=== PATIENT | female | born 1945 | race Caucasian/White ===

== ENCOUNTER → 2016-09-16 | Outpatient (REF) | payer MEDICARE ==
[~2016-09-16] MED LIST: AMLO5TAB2 PO; DOCU10CA PO; DRIS50002 PO; INSUH10VL SC; LANTINJ4 SC; LASI20TA PO; PRAV1TAB39 PO; PROZ20CA11 PO; RENV2TAB PO; ROCA0.5C PO; TUMS500C PO
== END ==
LOC: M LAB REF 17:14
PROVIDERS: ATTEND Internal Medicine Nephrology
DX: D64.9 Anemia, unspecified (principal); N18.9 Chronic kidney disease, unspecified

== ENCOUNTER → 2016-09-26 | Outpatient (CLI) | payer MEDICARE ==
--- NOTE | 2016-09-27 08:18 | REP ---
Renal vascular ultrasound and renal ultrasound: Renal vascular ultrasound: Right Kidney: Extraparenchymal renal artery. Peak renal artery flow velocity 132 cm per seconds Peak aortic velocity: 107 cm/sec Renal/aortic ratio: 1.2 Intraparenchymal renal arteries. Resistive index: upper pole 0.8 mid pole 0.8 lower pole 0.9 Acceleration time: upper pole 0.03 mid pole 0.2 lower pole 0.03 Left kidney: Extraparenchymal renal artery: Peak renal artery flow velocity: 120 cm/sec. Peak aortic velocity: 107 cm/sec Renal/aortic ratio: 1.1 Intraparenchymal renal arteries: Resistive index: Upper pole 0.8 mid pole 0.8 lower pole 0.8 Acceleration time: Upper pole 0.04 mid pole 0.02 lower pole 0.03 Impression: No evidence of renal artery stenosis by Doppler ultrasound. Renal ultrasound: The right kidney is atrophic size measuring 8.7 x 3.5 x 3.3 cm. Left kidney is normal size measuring 10.0 x 4.1 x 4.9 cm. Renal cortical echogenicity is normal bilaterally. There is no hydronephrosis on the right. There is mild hydronephrosis on the left. There is no hydroureter on the right or the left. No calculi, masses or cysts are identified on the right or left. Bladder ultrasound: With color Doppler assessment there are bilateral ureteral jets. No bladder wall polyps or nodules are identified. Impression: Right kidney is atrophic size. Mild left hydronephrosis. Signed by Javier Hopper MD 09/27/2016 08:09 A
== END ==
LOC: M RAD 07:58
PROVIDERS: ATTEND Internal Medicine Nephrology
DX: N28.9 Disorder of kidney and ureter, unspecified (principal); N13.30 Unspecified hydronephrosis; N18.3 Chronic kidney disease, stage 3 (moderate); I10 Essential (primary) hypertension; E10.22 Type 1 diabetes mellitus with diabetic chronic kidney disease

== ENCOUNTER 2016-10-07 17:03 | Emergency (ER) | payer MEDICARE ==
[2016-10-07] MEDS ORDERED: BENZONATATE 100 MG CAP As Ordered ONE (18:40)
[2016-10-07] MEDS ORDERED: ACETAMINOPHEN 325 MG TAB As Ordered ONE (18:41)
--- NOTE | 2016-10-07 19:53 | EDDOCDS ---
Physician Documentation [facility] Name: Serena Mccrary Age: 71 yrs Sex: Female : 1945 Arrival Date: 10/07/2016 Time: 17:03 Bed TR8 Private MD: Etta Solorzano Disposition: 10/07/16 18:43 Discharged to Home/Self Care. Impression: Acute upper respiratory infection, unspecified, Cough. - Condition is Stable. - Discharge Instructions: Upper Respiratory Infection, Adult, Cough, Adult. - Prescriptions for benzonatate 200 mg Oral Capsule - take 1 capsule by ORAL route 3 times per day As needed; 30 capsule. - Medication Reconciliation, Local Pharmacy Hours form. - Follow up: Etta Solorzano; When: Call to arrange an appointment; Reason: Recheck today's complaints, Continuance of care. - Problem is new. - Symptoms are unchanged. Historical: - Allergies: PENICILLINS; Keflex; Erythromycin; Tetracyclines; Codeine Sulfate; Aspirin; Hydrochlorothiazide; - Home Meds: 1. Renvela 800 mg oral tab 1 tab daily 2. amlodipine 10 mg Oral tab 1 tab once daily 3. losartan 25 mg oral tab 1 tab once daily 4. fluoxetine 10 mg Oral cap 2 caps daily 5. omeprazole 20 mg Oral cpDR 1 cap once daily 6. calcitriol 0.5 mcg oral cap 2 caps once daily 7. pravastatin 20 mg oral tab 1 tab once daily 8. furosemide 10 mg/mL Oral soln 1 mL once daily 9. Zyrtec 10 mg Oral tab 1 tab once daily - PMHx: Depression; Hypertension; hyperglycemia; Diabetes - NIDDM: controlled; chronic kidney disease stage 3; - PSHx: Hysterectomy; cyst removal; Cholecystectomy; - Social history: Smoking status: Patient states was never smoker of tobacco. No barriers to communication noted, The patient speaks fluent Arabic, Speaks appropriately for age. - : The pt / caregiver states he / she is not on anticoagulants. Home medication list is obtained from the patient. - Exposure Risk Screening:: None identified. Vital Signs: 10/07 17:06 BP 145 / 66 RA Sitting (auto/reg); Pulse 86; Resp 16; Temp 98.8(O); Pulse Ox 98% on jrd R/A; Weight 48.53 kg / 106.99 lbs (R); Height 5 ft. 0 in. (152.40 cm) (R); Pain 0/10; 17:06 Body Mass Index 20.90 (48.53 kg, 152.40 cm) jrd MDM: 18:39 Tessalon 200 mg PO once ordered. mo1 18:40 Acetaminophen Tablet 650 mg PO once ordered. mo1 Administered Medications: 18:43 Drug: Tessalon 200 mg Route: PO; ml6 18:43 Drug: Acetaminophen 650 mg [acetaminophen 325 mg tablet (2 tabs)] Route: PO; ml6 Signatures: Rusty Yap PA PA mo1 Navin Jenkins,RN RN Babar Neil RN ml6 MTDD
--- NOTE | 2016-10-07 19:53 | EDDOCDS ---
Nurse's Notes [facility] Name: Serena Mccrary Age: 71 yrs Sex: Female : 1945 Arrival Date: 10/07/2016 Time: 17:03 Bed TR8 Private MD: Etta Solorzano Diagnosis: Acute upper respiratory infection, unspecified;Cough Presentation: 10/07 17:10 Presenting complaint: Patient states: Patient reports having issue for two weeks with [facility] new medication amlodipine. Patient reports blood pressure was high, increased from 5-10mg. Patient reports respiratory issue. Presenting complaint: Patient states: Patient reports cold, cough, sore throat, and loss of voiced. The last date and time the patient was known to be well was. The last date and time the patient was known to be well was was at an unknown time on an unknown date. No acute neurological deficit is noted. Pre-hospital glucose is not applicable to this patient. Adult Sepsis Screening: The patient does not have new or worsening altered mentation. Patient's respiratory rate is less than 22. Systolic blood pressure is greater than 100. Patient has a qSOFA score of 0- Negative Sepsis Screen. Suicide/Homicide risk assessment- the patient denies having any suicidal and/or homicidal ideations and does not present with any other emotional, behavioral or mental health complaints. Status: Patient is not a marketing services manager or dependent. Transition of care: patient was not received from another setting of care. 17:10 Acuity: SEMAJ Level 4 [facility] 17:10 Method Of Arrival: Walkin/Carried/Asstd [facility] Triage Assessment: 17:17 The onset of the patients symptoms was more than three hours ago. General: Appears in jmb no apparent distress, Behavior is appropriate for age, cooperative. Pain: Denies pain. Neurological: Level of Consciousness is awake, alert, obeys commands, Oriented to person, place, time, Speech is normal, Facial symmetry appears normal, Facial symmetry: tongue is midline, Reports no additional symptoms. Respiratory: Airway is patent Respiratory effort is even, unlabored, Respiratory pattern is regular, symmetrical. Derm: Skin is pink, warm & dry. Musculoskeletal: Range of motion intact in all extremities. Historical: - Allergies: PENICILLINS; Keflex; Erythromycin; Tetracyclines; Codeine Sulfate; Aspirin; Hydrochlorothiazide; - Home Meds: 1. Renvela 800 mg oral tab 1 tab daily 2. amlodipine 10 mg Oral tab 1 tab once daily 3. losartan 25 mg oral tab 1 tab once daily 4. fluoxetine 10 mg Oral cap 2 caps daily 5. omeprazole 20 mg Oral cpDR 1 cap once daily 6. calcitriol 0.5 mcg oral cap 2 caps once daily 7. pravastatin 20 mg oral tab 1 tab once daily 8. furosemide 10 mg/mL Oral soln 1 mL once daily 9. Zyrtec 10 mg Oral tab 1 tab once daily - PMHx: Depression; Hypertension; hyperglycemia; Diabetes - NIDDM: controlled; chronic kidney disease stage 3; - PSHx: Hysterectomy; cyst removal; Cholecystectomy; - Social history: Smoking status: Patient states was never smoker of tobacco. No barriers to communication noted, The patient speaks fluent Iraqi, Speaks appropriately for age. - : The pt / caregiver states he / she is not on anticoagulants. Home medication list is obtained from the patient. - Exposure Risk Screening:: None identified. Vital Signs: 17:06 BP 145 / 66 RA Sitting (auto/reg); Pulse 86; Resp 16; Temp 98.8(O); Pulse Ox 98% on jrd R/A; Weight 48.53 kg (R); Height 5 ft. 0 in. (152.40 cm) (R); Pain 0/10; 17:06 Body Mass Index 20.90 (48.53 kg, 152.40 cm) [facility] Vitals: 17:06 Log In Time: October 07, 2016 at 17:00. [facility] ED Course: 17:06 Patient visited by Lucio Landeros PCA. jrd 17:06 Etta Solrozano is Private Physician. jrd 17:06 Patient moved to Waiting jrd 17:08 Patient visited by Lucio Landeros PCA. jrd 17:08 Patient moved to Pre RCE jrd 17:12 Triage Initiated jmb 18:11 Patient moved to Triage 1 ar3 18:28 Rusty Yap PA is PHCP. mo1 18:28 Teresa Pedersen MD is Attending Physician. mo1 18:31 Patient visited by Babar Guevara RN. ml6 18:41 Patient visited by Rusty Yap PA. mo1 18:43 Etta Solorzano is Referral Physician. mo1 18:48 Patient moved to TR8 ml6 Administered Medications: 18:43 Drug: Tessalon 200 mg Route: PO; ml6 18:43 Drug: Acetaminophen 650 mg [acetaminophen 325 mg tablet (2 tabs)] Route: PO; ml6 Order Results: There are currently no results for this order. Outcome: 18:43 Discharge ordered by Provider. mo1 19:52 Patient left the ED. trisha Signatures: Babar Guevara RN RN ml6 Mikayla Law, MIDDLE SCHOOL COMBINATION TEACHER MIDDLE SCHOOL COMBINATION TEACHER ar3 Rusty Yap PA PA mo1 Navin Jenkins RN RN gustabob Lucio Landeros, MIDDLE SCHOOL COMBINATION TEACHER MIDDLE SCHOOL COMBINATION TEACHER jrd MTDD
--- NOTE | 2016-10-09 20:53 | EDDOCDS ---
Physician Documentation [facility] Name: Serena Mccrary Age: 71 yrs Sex: Female : 1945 Arrival Date: 10/07/2016 Time: 17:03 Bed TR8 Private MD: Etta Solorzano Disposition: 10/07/16 18:43 Discharged to Home/Self Care. Impression: Acute upper respiratory infection, unspecified, Cough. - Condition is Stable. - Discharge Instructions: Upper Respiratory Infection, Adult, Cough, Adult. - Prescriptions for benzonatate 200 mg Oral Capsule - take 1 capsule by ORAL route 3 times per day As needed; 30 capsule. - Medication Reconciliation, Local Pharmacy Hours form. - Follow up: Etta Solorzano; When: Call to arrange an appointment; Reason: Recheck today's complaints, Continuance of care. - Problem is new. - Symptoms are unchanged. Historical: - Allergies: PENICILLINS; Keflex; Erythromycin; Tetracyclines; Codeine Sulfate; Aspirin; Hydrochlorothiazide; - Home Meds: 1. Renvela 800 mg oral tab 1 tab daily 2. amlodipine 10 mg Oral tab 1 tab once daily 3. losartan 25 mg oral tab 1 tab once daily 4. fluoxetine 10 mg Oral cap 2 caps daily 5. omeprazole 20 mg Oral cpDR 1 cap once daily 6. calcitriol 0.5 mcg oral cap 2 caps once daily 7. pravastatin 20 mg oral tab 1 tab once daily 8. furosemide 10 mg/mL Oral soln 1 mL once daily 9. Zyrtec 10 mg Oral tab 1 tab once daily - PMHx: Depression; Hypertension; hyperglycemia; Diabetes - NIDDM: controlled; chronic kidney disease stage 3; - PSHx: Hysterectomy; cyst removal; Cholecystectomy; - Social history: Smoking status: Patient states was never smoker of tobacco. No barriers to communication noted, The patient speaks fluent Maltese, Speaks appropriately for age. - : The pt / caregiver states he / she is not on anticoagulants. Home medication list is obtained from the patient. - Exposure Risk Screening:: None identified. Vital Signs: 10/07 17:06 BP 145 / 66 RA Sitting (auto/reg); Pulse 86; Resp 16; Temp 98.8(O); Pulse Ox 98% on jrd R/A; Weight 48.53 kg / 106.99 lbs (R); Height 5 ft. 0 in. (152.40 cm) (R); Pain 0/10; 17:06 Body Mass Index 20.90 (48.53 kg, 152.40 cm) jrd MDM: 18:39 Tessalon 200 mg PO once ordered. mo1 18:40 Acetaminophen Tablet 650 mg PO once ordered. mo1 10/08 11:18 T-Sheet-- Draft Copy was scanned into [employer] and attached to record. gb Administered Medications: 10/07 18:43 Drug: Tessalon 200 mg Route: PO; ml6 18:43 Drug: Acetaminophen 650 mg [acetaminophen 325 mg tablet (2 tabs)] Route: PO; ml6 Signatures: Nelli Lock, Ovidio Reg gb Rusty Yap PA PA mo1 Navin Jenkins, RN RN Babar Neil RN ml6 The chart was reviewed and I authenticate all verbal orders and agree with the evaluation and treatment provided.Attachments: 10/08 11:18 T-Sheet-- Draft Copy gb Chart Complete MTDD
--- NOTE | 2016-10-09 20:53 | EDDOCDS ---
Nurse's Notes [facility] Name: Serena Mccrary Age: 71 yrs Sex: Female : 1945 Arrival Date: 10/07/2016 Time: 17:03 Bed TR8 Private MD: Etta Solorzano Diagnosis: Acute upper respiratory infection, unspecified;Cough Presentation: 10/07 17:10 Presenting complaint: Patient states: Patient reports having issue for two weeks with [facility] new medication amlodipine. Patient reports blood pressure was high, increased from 5-10mg. Patient reports respiratory issue. Presenting complaint: Patient states: Patient reports cold, cough, sore throat, and loss of voiced. The last date and time the patient was known to be well was. The last date and time the patient was known to be well was was at an unknown time on an unknown date. No acute neurological deficit is noted. Pre-hospital glucose is not applicable to this patient. Adult Sepsis Screening: The patient does not have new or worsening altered mentation. Patient's respiratory rate is less than 22. Systolic blood pressure is greater than 100. Patient has a qSOFA score of 0- Negative Sepsis Screen. Suicide/Homicide risk assessment- the patient denies having any suicidal and/or homicidal ideations and does not present with any other emotional, behavioral or mental health complaints. Status: Patient is not a sales and service specialist or dependent. Transition of care: patient was not received from another setting of care. 17:10 Acuity: SEMAJ Level 4 [facility] 17:10 Method Of Arrival: Walkin/Carried/Asstd [facility] Triage Assessment: 17:17 The onset of the patients symptoms was more than three hours ago. General: Appears in jmb no apparent distress, Behavior is appropriate for age, cooperative. Pain: Denies pain. Neurological: Level of Consciousness is awake, alert, obeys commands, Oriented to person, place, time, Speech is normal, Facial symmetry appears normal, Facial symmetry: tongue is midline, Reports no additional symptoms. Respiratory: Airway is patent Respiratory effort is even, unlabored, Respiratory pattern is regular, symmetrical. Derm: Skin is pink, warm & dry. Musculoskeletal: Range of motion intact in all extremities. Historical: - Allergies: PENICILLINS; Keflex; Erythromycin; Tetracyclines; Codeine Sulfate; Aspirin; Hydrochlorothiazide; - Home Meds: 1. Renvela 800 mg oral tab 1 tab daily 2. amlodipine 10 mg Oral tab 1 tab once daily 3. losartan 25 mg oral tab 1 tab once daily 4. fluoxetine 10 mg Oral cap 2 caps daily 5. omeprazole 20 mg Oral cpDR 1 cap once daily 6. calcitriol 0.5 mcg oral cap 2 caps once daily 7. pravastatin 20 mg oral tab 1 tab once daily 8. furosemide 10 mg/mL Oral soln 1 mL once daily 9. Zyrtec 10 mg Oral tab 1 tab once daily - PMHx: Depression; Hypertension; hyperglycemia; Diabetes - NIDDM: controlled; chronic kidney disease stage 3; - PSHx: Hysterectomy; cyst removal; Cholecystectomy; - Social history: Smoking status: Patient states was never smoker of tobacco. No barriers to communication noted, The patient speaks fluent Angolan, Speaks appropriately for age. - : The pt / caregiver states he / she is not on anticoagulants. Home medication list is obtained from the patient. - Exposure Risk Screening:: None identified. Vital Signs: 17:06 BP 145 / 66 RA Sitting (auto/reg); Pulse 86; Resp 16; Temp 98.8(O); Pulse Ox 98% on jrd R/A; Weight 48.53 kg (R); Height 5 ft. 0 in. (152.40 cm) (R); Pain 0/10; 17:06 Body Mass Index 20.90 (48.53 kg, 152.40 cm) [facility] Vitals: 17:06 Log In Time: October 07, 2016 at 17:00. [facility] ED Course: 17:06 Patient visited by Lucio Landeros PCA. jrd 17:06 Etta Solorzano is Private Physician. jrd 17:06 Patient moved to Waiting jrd 17:08 Patient visited by Lucio Landeros PCA. jrd 17:08 Patient moved to Pre RCE jrd 17:12 Triage Initiated jmb 18:11 Patient moved to Triage 1 ar3 18:28 Rusty Yap PA is PHCP. mo1 18:28 Teresa Pedersen MD is Attending Physician. mo1 18:31 Patient visited by Babar Guevara RN. ml6 18:41 Patient visited by Rusty Yap PA. mo1 18:43 Etta Solorzano is Referral Physician. mo1 18:48 Patient moved to TR8 6 10/08 11:18 T-Sheet-- Draft Copy was scanned into [employer] and attached to record. gb Administered Medications: 10/07 18:43 Drug: Tessalon 200 mg Route: PO; ml6 18:43 Drug: Acetaminophen 650 mg [acetaminophen 325 mg tablet (2 tabs)] Route: PO; ml6 Order Results: There are currently no results for this order. Outcome: 18:43 Discharge ordered by Provider. mo1 19:52 Patient left the ED. trisha Signatures: Nelli Lock, Reg Reg gb Babar Guevara, RN RN ml6 Mikayla Law, REVENUE ACCOUNTANT REVENUE ACCOUNTANT ar3 Rusty Yap, PA PA mo1 Navin Jenkins, ANNA RN Lucio Patterson, REVENUE ACCOUNTANT REVENUE ACCOUNTANT jrd Chart Complete MTDD
--- NOTE | 2016-10-09 20:53 | EDDOCDS ---
Physician Documentation [facility] Name: Serena Mccrary Age: 71 yrs Sex: Female : 1945 Arrival Date: 10/07/2016 Time: 17:03 Bed TR8 Private MD: tEta Solorzano Disposition: 10/07/16 18:43 Discharged to Home/Self Care. Impression: Acute upper respiratory infection, unspecified, Cough. - Condition is Stable. - Discharge Instructions: Upper Respiratory Infection, Adult, Cough, Adult. - Prescriptions for benzonatate 200 mg Oral Capsule - take 1 capsule by ORAL route 3 times per day As needed; 30 capsule. - Medication Reconciliation, Local Pharmacy Hours form. - Follow up: Etta Solorzano; When: Call to arrange an appointment; Reason: Recheck today's complaints, Continuance of care. - Problem is new. - Symptoms are unchanged. Historical: - Allergies: PENICILLINS; Keflex; Erythromycin; Tetracyclines; Codeine Sulfate; Aspirin; Hydrochlorothiazide; - Home Meds: 1. Renvela 800 mg oral tab 1 tab daily 2. amlodipine 10 mg Oral tab 1 tab once daily 3. losartan 25 mg oral tab 1 tab once daily 4. fluoxetine 10 mg Oral cap 2 caps daily 5. omeprazole 20 mg Oral cpDR 1 cap once daily 6. calcitriol 0.5 mcg oral cap 2 caps once daily 7. pravastatin 20 mg oral tab 1 tab once daily 8. furosemide 10 mg/mL Oral soln 1 mL once daily 9. Zyrtec 10 mg Oral tab 1 tab once daily - PMHx: Depression; Hypertension; hyperglycemia; Diabetes - NIDDM: controlled; chronic kidney disease stage 3; - PSHx: Hysterectomy; cyst removal; Cholecystectomy; - Social history: Smoking status: Patient states was never smoker of tobacco. No barriers to communication noted, The patient speaks fluent Georgian, Speaks appropriately for age. - : The pt / caregiver states he / she is not on anticoagulants. Home medication list is obtained from the patient. - Exposure Risk Screening:: None identified. Vital Signs: 10/07 17:06 BP 145 / 66 RA Sitting (auto/reg); Pulse 86; Resp 16; Temp 98.8(O); Pulse Ox 98% on jrd R/A; Weight 48.53 kg / 106.99 lbs (R); Height 5 ft. 0 in. (152.40 cm) (R); Pain 0/10; 17:06 Body Mass Index 20.90 (48.53 kg, 152.40 cm) jrd MDM: 18:39 Tessalon 200 mg PO once ordered. mo1 18:40 Acetaminophen Tablet 650 mg PO once ordered. mo1 10/08 11:18 T-Sheet-- Draft Copy was scanned into [employer] and attached to record. gb Administered Medications: 10/07 18:43 Drug: Tessalon 200 mg Route: PO; ml6 18:43 Drug: Acetaminophen 650 mg [acetaminophen 325 mg tablet (2 tabs)] Route: PO; ml6 Signatures: Nelli Lock, Ovidio Reg gb Rusty Yap PA PA mo1 Navin Jenkins, RN RN Babar Neil RN ml6 The chart was reviewed and I authenticate all verbal orders and agree with the evaluation and treatment provided.Attachments: 10/08 11:18 T-Sheet-- Draft Copy gb Chart Complete MTDD
== END 2016-10-07 19:52 | disposition home or self-care (01) ==
LOC: M ED 17:03
DX: J06.9 Acute upper respiratory infection, unspecified (principal); F32.9 Major depressive disorder, single episode, unspecified; I12.9 Hypertensive chronic kidney disease with stage 1 through stage 4 chronic kidney disease, or unspecified chronic kidney disease; E11.65 Type 2 diabetes mellitus with hyperglycemia; E11.22 Type 2 diabetes mellitus with diabetic chronic kidney disease; N18.3 Chronic kidney disease, stage 3 (moderate); Z79.899 Other long term (current) drug therapy; Z88.0 Allergy status to penicillin; Z88.1 Allergy status to other antibiotic agents; Z88.5 Allergy status to narcotic agent; Z88.6 Allergy status to analgesic agent

== ENCOUNTER → 2017-01-10 | Outpatient (REF) | payer MEDICARE ==
[2017-01-10 18:49] LABS: FREE T4 1.31 NG/DL (0.76-1.46)
== END ==
LOC: M LAB REF 16:47
PROVIDERS: ATTEND Internal Medicine Nephrology
DX: R68.83 Chills (without fever) (principal)

== ENCOUNTER → 2017-11-13 | Outpatient (REF) | payer MEDICARE ==
[2017-11-13 18:49] LABS: FERRITIN 30 NG/ML (8-252); IRON (FE) 28 UG/DL (50-170); PERCENT SATURATION 9.5 % (13.2-45.0); TOTAL IRON BINDING CAPACITY 296 UG/DL (250-450)
== END ==
LOC: M LAB REF 17:31
DX: N18.9 Chronic kidney disease, unspecified (principal); D63.1 Anemia in chronic kidney disease
CPT/HCPCS: 83550

== ENCOUNTER → 2018-11-10 | Outpatient (CLI) | payer MEDICARE ==
[~2018-11-10] MED LIST changes: -AMLO5TAB2 PO; +AMLO5TAB6 PO; -DRIS50002 PO; +DRIS50003 PO; -LASI20TA PO; +LASI20TA3 PO; +MAGN250T9 PO
--- NOTE | 2018-11-10 14:42 | REP ---
Clinical: Trauma. Technique: Frontal view of the chest with multiple (4) views of the right hemithorax. Findings: Frontal view of the chest demonstrates no acute cardiopulmonary process. Skeletal structures demonstrate generalized osteopenia and degenerative changes. Chronic scoliosis. Multiple views of the right hemithorax demonstrates no obvious acute rib fracture or pathology. Impression: No obvious rib fracture identified. Electronically Signed by JoseJ Dooley MD 11/10/2018 02:33 P
== END ==
LOC: M WUC 11:03
PROVIDERS: ATTEND Physician Assistant
DX: M85.88 Other specified disorders of bone density and structure, other site (principal); M41.9 Scoliosis, unspecified; S20.221A Contusion of right back wall of thorax, initial encounter; X58.XXXA Exposure to other specified factors, initial encounter; Y92.9 Unspecified place or not applicable

== ENCOUNTER → 2019-04-20 | Outpatient (REF) | payer MEDICARE ==
[2019-04-22 14:07] LABS: Lyme Disease IgG/IgM Antibodie <0.91 ISR (0.00-0.90); Lyme Disease IgM Ab Quantitati <0.80 index (0.00-0.79)
== END ==
LOC: M LAB REF 12:47
PROVIDERS: ATTEND Nurse Practitioner Adult Health
DX: S70.361A Insect bite (nonvenomous), right thigh, initial encounter (principal); W57.XXXA Bitten or stung by nonvenomous insect and other nonvenomous arthropods, initial encounter; Y99.9 Unspecified external cause status; Y93.9 Activity, unspecified

== ENCOUNTER → 2019-05-12 | Outpatient (REF) | payer MEDICARE | LOC: M LAB REF 12:57 | PROVIDERS: ATTEND Nurse Practitioner Family | DX: N39.0 Urinary tract infection, site not specified (principal) ==

== ENCOUNTER → 2019-05-27 | Outpatient (REF) | payer MEDICARE | LOC: M LAB REF 11:51 | PROVIDERS: ATTEND Nurse Practitioner Adult Health | DX: N39.0 Urinary tract infection, site not specified (principal) ==

== ENCOUNTER → 2019-07-02 | Outpatient (REF) | payer MEDICARE ==
[2019-07-02 18:06] LABS: PERCENT SATURATION 34.8 % (13.2-45.0)
== END ==
LOC: M LAB REF 16:57
PROVIDERS: ATTEND Nurse Practitioner Family
DX: D50.9 Iron deficiency anemia, unspecified (principal)

== ENCOUNTER → 2019-09-28 | Outpatient (REF) | payer MEDICARE ==
[2019-09-28 19:46] LABS: INFLUENZA A AMPLIFICATION NEGATIVE (NEGATIVE); INFLUENZA B AMPLIFICATION NEGATIVE (NEGATIVE)
== END ==
LOC: M LAB REF 17:00
PROVIDERS: ATTEND Nurse Practitioner Adult Health
DX: J06.9 Acute upper respiratory infection, unspecified (principal)

== ENCOUNTER → 2020-04-26 | Outpatient (REF) | payer MEDICARE ==
[~2020-04-26] MED LIST changes: +AMLO1TAB24 PO; -AMLO5TAB6 PO
== END ==
LOC: M LAB REF 18:16
PROVIDERS: ATTEND Nurse Practitioner Adult Health
DX: M81.0 Age-related osteoporosis without current pathological fracture (principal); K21.9 Gastro-esophageal reflux disease without esophagitis

== ENCOUNTER → 2020-10-30 | Outpatient (REF) | payer MEDICARE ==
[2020-10-30 17:20] LABS: PTH INTACT 189.7 PG/ML (18.5-88.0)
== END ==
LOC: M LAB REF 16:15
PROVIDERS: ATTEND Nurse Practitioner Adult Health
DX: M81.0 Age-related osteoporosis without current pathological fracture (principal); N18.32 Chronic kidney disease, stage 3b

== ENCOUNTER → 2020-11-03 | Outpatient (REF) | payer MEDICARE ==
[2020-11-03 17:42] LABS: PERCENT SATURATION 39.2 % (13.2-45.0)
== END ==
LOC: M LAB REF 16:46
PROVIDERS: ATTEND Internal Medicine Nephrology
DX: D50.9 Iron deficiency anemia, unspecified (principal)

== ENCOUNTER → 2021-01-23 | Outpatient (CLI) | payer MEDICARE ==
--- NOTE | 2021-01-23 16:43 | REP ---
INDICATION: SEVERE ABD PAIN. COMPARISON: 01/13/2020 the latest prior TECHNIQUE: Standard helical technique without the administration of intravenous or oral bowel preparatory contrast. This limits the exam. FINDINGS: There is no significant change in appearance of the lung bases. There is cylindrical bronchiectasis. Once again, there are bilateral nonobstructing nephroliths. There are no ureterolith sore urinary bladder calcifications. There is no hydronephrosis or hydroureter. Limited evaluation of the solid intra-abdominal organs show no gross abnormalities or significant changes from the prior exam. The patient is status post cholecystectomy. Limited evaluation of the pancreas and adrenal glands show no significant changes from the prior exam. No gross abnormalities are noted. There is no free fluid or free air. Limited evaluation of the bowel loops and the mesenteries show no gross abnormalities or significant changes from the prior exam. There is an unchanged small soft tissue density in the deep subcutaneous adipose tissue overlying the right lower abdominal wall. This is essentially unchanged from the 09/12/2014 CT with exception of 2 benign calcifications now seen within it. Bone window technique throughout the exam shows no significant change in appearance of the osseous structures. IMPRESSION: Limited noncontrast enhanced examination shows no evidence of acute disease or significant change compared to prior exams as described above. <Electronically signed by Espinoza Feliciano > 01/23/21 [id number]
[2021-01-23 17:21] LABS: AMYLASE 51 U/L (25-115); LIPASE 83 U/L (73-393)
== END ==
LOC: M RAD 16:06
PROVIDERS: ATTEND Physician Assistant Medical
DX: R10.13 Epigastric pain (principal); R10.84 Generalized abdominal pain

== ENCOUNTER → 2021-01-31 | Outpatient (REF) | payer MEDICARE ==
[2021-01-31 13:45] LABS: H PYLORI QUALITATIVE IgG NEGATIVE (NEGATIVE)
== END ==
LOC: M LAB REF 12:33
PROVIDERS: ATTEND Nurse Practitioner Adult Health
DX: R10.13 Epigastric pain (principal); R10.32 Left lower quadrant pain

== ENCOUNTER → 2021-03-07 | Outpatient (REF) | payer MEDICARE | LOC: M LAB REF 17:04 | PROVIDERS: ATTEND Nurse Practitioner Family | DX: E83.42 Hypomagnesemia (principal) ==

== ENCOUNTER 2021-05-28 19:25 | Emergency (ER) | payer MEDICARE ==
[2021-05-28 21:54] LABS: BASO # 0.1 10^3/uL (0.0-0.2); BASO % 0.6 % (0.0-1.0); EOS % 0.2 % (0.0-3.0); HEMATOCRIT 39.2 % (36.0-47.0); LYMPH # 1.1 10^3/uL (1.5-5.0); LYMPH % 8.7 % (24.0-44.0); MEAN CORPUSCULAR HEMOGLOBIN 31.8 pg (27.0-33.0); MEAN CORPUSCULAR HGB CONC 30.6 g/dl (32.0-36.5); MONO # 0.6 10^3/uL (0.0-0.8); NEUTROPHILS # 10.3 10^3/uL (1.5-8.5); NEUTROPHILS % 84.7 % (36.0-66.0); PLATELET COUNT, AUTOMATED 206 10^3/uL (150-450); RED BLOOD COUNT 3.77 10^6/uL (4.00-5.40); WHITE BLOOD COUNT 12.1 10^3/uL (4.0-10.0)
--- NOTE | 2021-05-28 21:57 | REPVR ---
PROCEDURE INFORMATION: Exam: CT Cervical Spine Without Contrast Exam date and time: 05/28/2021 9:09 PM Age: 76 years old Clinical indication: Injury or trauma; Fall; Blunt trauma TECHNIQUE: Imaging protocol: Computed tomography images of the cervical spine without contrast. Radiation optimization: All CT scans at this facility use at least one of these dose optimization techniques: automated exposure control; mA and/or kV adjustment per patient size (includes targeted exams where dose is matched to clinical indication); or iterative reconstruction. COMPARISON: CT Spine,cervical w/o contrast 01/17/2015 7:59 AM FINDINGS: Bones/joints: Nonspecific straightening. Grade 1 anterolisthesis of C4 on C5. Vertebral body heights are preserved. There are degenerative changes about the dens. Mild to moderate prevertebral osteophytosis. There are facet joint degenerative changes greater on the right. No acute cervical spine fracture. Discs/Spinal canal/Neural foramina: No definite significant central canal stenosis within limitations of technique. Lungs: Lung apices are normal. Pleural spaces: No visible pneumothorax. Vasculature: Vascular calcification. Soft tissues: Unremarkable. IMPRESSION: No acute cervical spine fracture. Electronically signed by: Bandar Cosme On 05/28/2021 21:57:22 PM
--- NOTE | 2021-05-28 21:59 | REPVR ---
PROCEDURE INFORMATION: Exam: CT Head Without Contrast Exam date and time: 05/28/2021 9:09 PM Age: 76 years old Clinical indication: Injury or trauma; Fall; Blunt trauma (contusions or hematomas) TECHNIQUE: Imaging protocol: Computed tomography of the head without contrast. Radiation optimization: All CT scans at this facility use at least one of these dose optimization techniques: automated exposure control; mA and/or kV adjustment per patient size (includes targeted exams where dose is matched to clinical indication); or iterative reconstruction. COMPARISON: CT Head without contrast 01/17/2015 7:59 AM FINDINGS: Brain: Decreased attenuation of the supratentorial white matter is likely secondary to chronic microvascular ischemia. No acute intracranial hemorrhage. Cerebral ventricles: Ventricular and subarachnoid spaces are age appropriate. Paranasal sinuses: Visualized sinuses are unremarkable. No fluid levels. Mastoid air cells: Visualized mastoid air cells are well aerated. Vasculature: Intracranial vascular calcification. Bones/joints: Unremarkable. No acute fracture. Soft tissues: Unremarkable. IMPRESSION: No acute intracranial abnormality. Electronically signed by: Bandar Cosme On 05/28/2021 21:58:52 PM
[2021-05-28 22:21] LABS: ALBUMIN 3.5 GM/DL (3.2-5.2); BILIRUBIN,TOTAL 0.6 MG/DL (0.2-1.0); CALCIUM LEVEL 10.1 MG/DL (8.8-10.2); CREATININE FOR GFR 1.17 MG/DL (0.55-1.30); GLOMERULAR FILTRATION RATE 47.7 (>39); POTASSIUM SERUM 5.2 MEQ/L (3.5-5.1)
--- NOTE | 2021-05-28 22:31 | REPVR ---
PROCEDURE INFORMATION: Exam: XR Left Humerus Exam date and time: 05/28/2021 9:26 PM Age: 76 years old Clinical indication: Pain; Upper arm and elbow; Left; Additional info: Fall TECHNIQUE: Imaging protocol: XR Left humerus. Views: 2 or more views. COMPARISON: CR RIBS UNLATERAL WITH PA CHEST 11/10/2018 11:12 AM FINDINGS: Bones/joints: No acute fracture is visualized. No dislocation.The bones are osteopenic. Soft tissues: Suspect calcific tendinitis at the shoulder, involving the supraspinatus tendon. IMPRESSION: No acute fracture or dislocation. Electronically signed by: Ludmila Austin On 05/28/2021 22:30:47 PM
--- NOTE | 2021-05-28 22:34 | REPVR ---
PROCEDURE INFORMATION: Exam: XR Left Elbow Exam date and time: 05/28/2021 9:26 PM Age: 76 years old Clinical indication: Upper arm and elbow; Left; Patient HX: PT states posterior elbow pain upon movement; Additional info: Fall TECHNIQUE: Imaging protocol: XR Left elbow. Views: 3 or more views. COMPARISON: No relevant prior studies available. FINDINGS: Bones/joints: The bones are osteopenic. On lateral view, there is cortical step-off at the supracondylar humerus. Lateral oblique view shows subtle transversely oriented fracture line, likely extending to the anterior cortex. There is elevation of the anterior fat pad of the elbow, highly indicative of hemarthrosis in the setting of trauma. IMPRESSION: 1. Supracondylar fracture of the humerus. 2. Evidence of hemarthrosis. Electronically signed by: Ludmila Austin On 05/28/2021 22:33:36 PM
[2021-05-28] MEDS ORDERED: LEVEMIR (INSULIN DETEMIR) 1 UNITS/0.01ML SC ONE (22:45)
[2021-05-28 22:55] VITALS: BP 134/59
--- NOTE | 2021-05-29 21:37 | ECGEPIP ---
[facility] - ED Test Date: 2021-05-28 Pat Name: MARÍA JIMENEZ Department: Room: - Gender: Female [employer]: dario : 1945 Requested By: TABITHA Youssef Order Number: [id number] Reading MD: Simeon Khan Measurements Intervals [place] Rate: 80 P: 69 TN: 130 QRS: -25 QRSD: 72 T: 45 QT: 374 QTc: 431 Interpretive Statements Normal sinus rhythm Inferior infarct , age undetermined Low QRS complex voltage in the limb leads Nonspecific T wave abnormality Comparison tracing not on file Electronically Signed on 05-29-2021 21:37:03 EDT by Simeon Khan
== END 2021-05-28 23:55 | disposition home or self-care (01) ==
LOC: M ED 19:25
DX: S42.412A Displaced simple supracondylar fracture without intercondylar fracture of left humerus, initial encounter for closed fracture (principal); Y92.099 Unspecified place in other non-institutional residence as the place of occurrence of the external cause; Y93.9 Activity, unspecified; Y99.9 Unspecified external cause status; E11.649 Type 2 diabetes mellitus with hypoglycemia without coma; I10 Essential (primary) hypertension; F32.9 Major depressive disorder, single episode, unspecified; E78.5 Hyperlipidemia, unspecified; Z79.4 Long term (current) use of insulin; Z79.899 Other long term (current) drug therapy; Z88.8 Allergy status to other drugs, medicaments and biological substances; Z88.1 Allergy status to other antibiotic agents

== ENCOUNTER → 2021-05-31 | Outpatient (CLI) | payer MEDICARE ==
--- NOTE | 2021-05-31 15:52 | REP ---
INDICATION: LT HUMERUS FX. COMPARISON: 05/28/2021 TECHNIQUE: AP, lateral, axial views of the left elbow FINDINGS: Osteopenia and age-related changes are appreciated. The lateral view demonstrates soft tissue swelling with elevation to the anterior fat pad. The known nondisplaced supracondylar fracture of the distal humerus is barely visible on lateral radiograph along the posterior cortex. IMPRESSION: Nondisplaced supracondylar distal humeral fracture barely visible. Soft tissue swelling and hemarthrosis noted. <Electronically signed by Jose J Dooley > 05/31/21 [id number]
== END ==
LOC: M SOG 14:04
PROVIDERS: ATTEND Orthopaedic Surgery
DX: S42.415A Nondisplaced simple supracondylar fracture without intercondylar fracture of left humerus, initial encounter for closed fracture (principal); X58.XXXA Exposure to other specified factors, initial encounter; Y92.9 Unspecified place or not applicable; Y93.9 Activity, unspecified; Y99.9 Unspecified external cause status

== ENCOUNTER → 2021-06-21 | Outpatient (CLI) | payer MEDICARE ==
--- NOTE | 2021-06-21 15:20 | REP ---
INDICATION: LT ELBOW FX. COMPARISON: 05/31/2021. TECHNIQUE: Three views left elbow. FINDINGS: The nondisplaced supracondylar fracture is unchanged compared to the prior study. Soft tissue swelling is again noted. IMPRESSION: Stable exam. <Electronically signed by Javier Gonzalez > 06/21/21 [id number]
== END ==
LOC: M SOG 13:56
PROVIDERS: ATTEND Orthopaedic Surgery
DX: S42.455A Nondisplaced fracture of lateral condyle of left humerus, initial encounter for closed fracture (principal); X58.XXXA Exposure to other specified factors, initial encounter; Y92.9 Unspecified place or not applicable; Y93.9 Activity, unspecified; Y99.9 Unspecified external cause status

== ENCOUNTER → 2022-01-31 | Outpatient (CLI) | payer MEDICARE ==
[2022-01-31 16:27] LABS: BASO # 0.1 10^3/uL (0.0-0.2); BASO % 0.8 % (0.0-1.0); EOS # 0.1 10^3/uL (0.0-0.5); EOS % 1.4 % (0.0-3.0); HEMATOCRIT 34.8 % (36.0-47.0); HEMOGLOBIN 10.7 g/dl (12.0-15.5); LYMPH # 1.8 10^3/uL (1.5-5.0); LYMPH % 27.1 % (24.0-44.0); MEAN CORPUSCULAR HEMOGLOBIN 31.8 pg (27.0-33.0); MEAN CORPUSCULAR HGB CONC 30.7 g/dl (32.0-36.5); MEAN CORPUSCULAR VOLUME 103.6 fl (80.0-96.0); MONO # 0.6 10^3/uL (0.0-0.8); MONO % 8.6 % (2.0-8.0); NEUTROPHILS % 61.9 % (36.0-66.0); PLATELET COUNT, AUTOMATED 249 10^3/uL (150-450); RED BLOOD COUNT 3.36 10^6/uL (4.00-5.40); WHITE BLOOD COUNT 6.5 10^3/uL (4.0-10.0)
[2022-01-31 20:29] LABS: ERYTHROCYTE SEDIMENTATION RATE 25 mm/hr (0-30)
== END ==
LOC: M WUC 11:19
PROVIDERS: ATTEND Physician Assistant
DX: G44.1 Vascular headache, not elsewhere classified (principal)

== ENCOUNTER → 2022-02-19 | Outpatient (REF) | payer MEDICARE | LOC: M LAB REF 17:30 | PROVIDERS: ATTEND Nurse Practitioner Adult Health | DX: Z51.81 Encounter for therapeutic drug level monitoring (principal) ==

== ENCOUNTER 2022-05-29 18:25 | Observation (INO) | payer MEDICARE ==
[2022-05-29 19:10] LABS: BASO # 0.1 10^3/uL (0.0-0.2); BASO % 0.6 % (0.0-1.0); EOS # 0.1 10^3/uL (0.0-0.5); EOS % 1.6 % (0.0-3.0); HEMATOCRIT 33.7 % (36.0-47.0); HEMOGLOBIN 10.8 g/dl (12.0-15.5); LYMPH # 2.6 10^3/uL (1.5-5.0); LYMPH % 31.2 % (24.0-44.0); MEAN CORPUSCULAR HEMOGLOBIN 31.1 pg (27.0-33.0); MEAN CORPUSCULAR VOLUME 97.1 fl (80.0-96.0); MONO # 0.8 10^3/uL (0.0-0.8); MONO % 9.7 % (2.0-8.0); NEUTROPHILS # 4.7 10^3/uL (1.5-8.5); NEUTROPHILS % 56.7 % (36.0-66.0); PLATELET COUNT, AUTOMATED 222 10^3/uL (150-450); RED BLOOD COUNT 3.47 10^6/uL (4.00-5.40); WHITE BLOOD COUNT 8.4 10^3/uL (4.0-10.0)
[2022-05-29 19:22] LABS: INR 0.94; PROTHROMBIN TIME 12.8 SECONDS (12.5-14.5)
[2022-05-29 19:23] LABS: PARTIAL THROMBOPLASTIN TIME 22.6 SECONDS (24.8-34.2)
[2022-05-29 19:42] LABS: CPK CREATINE PHOSPHOKINASE 81 U/L (26-192)
[2022-05-29 19:47] LABS: RSV AMPLIFICATION NEGATIVE (NEGATIVE)
[2022-05-29 19:52] LABS: CALCIUM LEVEL 10.3 MG/DL (8.8-10.2); CREATININE FOR GFR 1.87 MG/DL (0.55-1.30); FREE T4 1.03 NG/DL (0.76-1.46); GLOMERULAR FILTRATION RATE 27.7 (>39); MAGNESIUM LEVEL 2.2 MG/DL (1.8-2.4); POTASSIUM SERUM 4.2 MEQ/L (3.5-5.1); THYROID STIMULATING HORMONE 4.61 uIU/ML (0.358-3.740)
[2022-05-29] MEDS ORDERED: LEVEMIR (INSULIN DETEMIR) 1 UNITS/0.01ML SC ONE (21:15)
[2022-05-29] MEDS ORDERED: FLUO10CA18 PO (23:49)
[2022-05-29] MEDS ORDERED: SLOWTAB2 PO (23:49)
[2022-05-29] MEDS ORDERED: ERGO500029 PO (23:49)
[2022-05-29] MEDS ORDERED: PRAV20TA2 PO (23:49)
[2022-05-29] MEDS ORDERED: HOME MED LIST COMPLETE! XX SCH (23:50)
[2022-05-29] MEDS ORDERED: AMLO1TAB24 PO (23:50)
[2022-05-29] MEDS ORDERED: OMEP1CAP73 PO (23:50)
[2022-05-29] MEDS ORDERED: ROCA0.5C PO (23:50)
[2022-05-29] MEDS ORDERED: INSUH10VL SC (23:50)
[2022-05-29] MEDS ORDERED: VALS1TAB66 PO (23:50)
[2022-05-30] MEDS ORDERED: GLUCOSE 4GM CHEW TABLET PO PRN (00:40)
[2022-05-30] MEDS ORDERED: CALCIUM CARBONATE 500 MG CHEW U/D PO PRN (00:40)
[2022-05-30] MEDS ORDERED: GLUCAGON INJ 1MG VIAL SC PRN (00:40)
[2022-05-30] MEDS ORDERED: DEXTROSE 50% 50 ML SYRINGE IV PRN (00:40)
[2022-05-30] MEDS ORDERED: NS 500 ML IV ONE (03:25)
[2022-05-30] MEDS ORDERED: amLODIPine 5 MG TAB PO ONE (05:55)
[2022-05-30 06:09] VITALS: BP 169/74
[2022-05-30 06:36] LABS: CALCIUM LEVEL 10.3 MG/DL (8.8-10.2); CREATININE FOR GFR 1.58 MG/DL (0.55-1.30); GLOMERULAR FILTRATION RATE 33.7 (>39); POTASSIUM SERUM 4.2 MEQ/L (3.5-5.1)
[2022-05-30] MEDS: INSULIN LISPRO (NovoLOG) PER UNIT SC SCH ×3 (07:47→17:30)
[2022-05-30] MEDS ORDERED: FLUoxetine 10 MG CAP PO SCH ×2 (09:00→21:00)
[2022-05-30] MEDS: OMEPRAZOLE 20MG CAP PO SCH (09:03)
[2022-05-30] MEDS: CALCITRIOL 0.25 MCG CAP (S0169) PO SCH (10:11)
[2022-05-30 14:37] VITALS: BP 148/74
[2022-05-30] MEDS ORDERED: LEVEMIR (INSULIN DETEMIR) 1 UNITS/0.01ML SC ONE (15:00)
[2022-05-30] MEDS ORDERED: INSULIN LISPRO (NovoLOG) PER UNIT SC STA (17:21)
[2022-05-30] MEDS ORDERED: ACETAMINOPHEN TAB 650MG DOSE (2X325MG) PO PRN (20:30)
[2022-05-30] MEDS ORDERED: PRAVASTATIN 20 MG TAB PO SCH (21:00)
[2022-05-30] MEDS ORDERED: LEVEMIR (INSULIN DETEMIR) 1 UNITS/0.01ML SC SCH ×2 (21:00)
[2022-05-30] MEDS ORDERED: INSULIN LISPRO (NovoLOG) PER UNIT SC SCH (21:00)
[2022-05-30] MEDS ORDERED: amLODIPine 5 MG TAB PO SCH ×2 (21:00)
[2022-05-30 22:00] VITALS: BP 133/57
[2022-05-31 06:00] VITALS: BP 133/57
[2022-05-31] MEDS ORDERED: INSULIN LISPRO (NovoLOG) PER UNIT SC ONE ×2 (06:20→08:35)
[2022-05-31] MEDS ORDERED: LEVEMIR (INSULIN DETEMIR) 1 UNITS/0.01ML SC ONE (06:30)
[2022-05-31] MEDS: INSULIN LISPRO (NovoLOG) PER UNIT SC SCH (07:30)
[2022-05-31 07:54] LABS: BASO # 0.1 10^3/uL (0.0-0.2); BASO % 0.6 % (0.0-1.0); EOS # 0.2 10^3/uL (0.0-0.5); HEMATOCRIT 32.8 % (36.0-47.0); HEMOGLOBIN 10.5 g/dl (12.0-15.5); LYMPH % 26.4 % (24.0-44.0); MEAN CORPUSCULAR HEMOGLOBIN 31.3 pg (27.0-33.0); MEAN CORPUSCULAR VOLUME 97.6 fl (80.0-96.0); MONO # 0.7 10^3/uL (0.0-0.8); MONO % 9.6 % (2.0-8.0); NEUTROPHILS # 4.7 10^3/uL (1.5-8.5); NEUTROPHILS % 60.1 % (36.0-66.0); PLATELET COUNT, AUTOMATED 204 10^3/uL (150-450); RED BLOOD COUNT 3.36 10^6/uL (4.00-5.40); WHITE BLOOD COUNT 7.7 10^3/uL (4.0-10.0)
[2022-05-31 08:32] LABS: CALCIUM LEVEL 10.1 MG/DL (8.8-10.2); CREATININE FOR GFR 1.48 MG/DL (0.55-1.30); GLOMERULAR FILTRATION RATE 36.3 (>39)
[2022-05-31] MEDS: CALCITRIOL 0.25 MCG CAP (S0169) PO SCH (09:03)
[2022-05-31] MEDS: OMEPRAZOLE 20MG CAP PO SCH (09:03)
== END 2022-05-31 12:15 | disposition home or self-care (01) ==
LOC: M ED 18:25 → M ED INP 18:26 → ENRESERV 05-30 13:36 → M MSPAV 05-30 14:31
PROVIDERS: ADMIT Internal Medicine; ATTEND Internal Medicine
DX: R55 Syncope and collapse (principal); S52.611A Displaced fracture of right ulna styloid process, initial encounter for closed fracture; W19.XXXA Unspecified fall, initial encounter; Y92.29 Other specified public building as the place of occurrence of the external cause; E11.65 Type 2 diabetes mellitus with hyperglycemia; N17.0 Acute kidney failure with tubular necrosis; N18.9 Chronic kidney disease, unspecified; I27.0 Primary pulmonary hypertension; R60.0 Localized edema; E03.9 Hypothyroidism, unspecified; I12.9 Hypertensive chronic kidney disease with stage 1 through stage 4 chronic kidney disease, or unspecified chronic kidney disease; K21.9 Gastro-esophageal reflux disease without esophagitis; E86.0 Dehydration; Z88.1 Allergy status to other antibiotic agents; Z79.4 Long term (current) use of insulin; Z79.899 Other long term (current) drug therapy; Z91.14 Patient's other noncompliance with medication regimen
CPT/HCPCS: 36415; 70450; 71045; 72125; 73060; 73090; 73110; 73130; 80048; 82330; 82550; 83735; 84439; 84443; 84484; 85025; 85610; 85730; 87631; 93005; 93041; 93306; 93356; 94760; 97161; 99285; G0378; J1815

== ENCOUNTER → 2022-06-27 | Outpatient (CLI) | payer MEDICARE ==
[~2022-06-27] MED LIST changes: +ERGO500029 PO; +FLUO10CA18 PO; +OMEP1CAP73 PO; +PRAV20TA2 PO; +SLOWTAB2 PO; +VALS1TAB66 PO
== END ==
LOC: M SOG 08:31
PROVIDERS: ATTEND Orthopaedic Surgery Hand Surgery
DX: S52.611D Displaced fracture of right ulna styloid process, subsequent encounter for closed fracture with routine healing (principal)

== ENCOUNTER → 2022-07-26 | Outpatient (CLI) | payer MEDICARE | LOC: M SOG 08:09 | PROVIDERS: ATTEND Orthopaedic Surgery Hand Surgery | DX: S52.611D Displaced fracture of right ulna styloid process, subsequent encounter for closed fracture with routine healing (principal); M25.522 Pain in left elbow ==

== ENCOUNTER → 2022-11-08 | Outpatient (CLI) | payer MEDICARE ==
[2022-11-08 10:34] LABS: APPEARANCE, URINE CLOUDY (CLEAR); BACTERIA, URINE AUTO 2+ (NEGATIVE); BILIRUBIN, URINE AUTO NEGATIVE (NEGATIVE); BLOOD, URINE BLOOD 1+ (NEGATIVE); COLOR, URINE YELLOW (YELLOW); GLUCOSE, URINE (UA) AUTO NEGATIVE (NEGATIVE); KETONE, URINE AUTO NEGATIVE (NEGATIVE); LEUKOCYTE ESTERASE, URINE AUTO 3+ (NEGATIVE); NITRITE, URINE AUTO POSITIVE (NEGATIVE); PROTEIN, URINE AUTO 1+ mg/dL (NEGATIVE); RBC, URINE AUTO 11 /HPF (0-3); SPECIFIC GRAVITY URINE AUTO 1.011 (1.002-1.035); SQUAMOUS EPITHELIAL CELL UR AU 0 /HPF (0-6); UROBILINOGEN, URINE AUTO 0.2 mg/dL (0.0-2.0); WBC, URINE AUTO TNTC /HPF (0-3)
== END ==
LOC: M LAB 09:27
PROVIDERS: ATTEND Nurse Practitioner Family
DX: N18.32 Chronic kidney disease, stage 3b (principal)

== ENCOUNTER → 2023-02-14 | Outpatient (CLI) | payer MEDICARE | LOC: M WHC 09:26 | PROVIDERS: ATTEND Nurse Practitioner Adult Health | DX: Z12.31 Encounter for screening mammogram for malignant neoplasm of breast (principal) ==

== ENCOUNTER → 2023-09-05 | Outpatient (REF) | payer MEDICARE ==
[2023-09-05 18:57] LABS: FERRITIN 14.3 NG/ML (7.3-270.7)
[2023-09-05 18:58] LABS: PERCENT SATURATION 36.9 % (13.2-45.0)
[2023-09-05 19:01] LABS: FOLATE 12.9 NG/ML (>5.4)
== END ==
LOC: M LAB REF 17:35
PROVIDERS: ATTEND Nurse Practitioner Family
DX: D50.9 Iron deficiency anemia, unspecified (principal); D64.9 Anemia, unspecified

== ENCOUNTER 2023-12-27 19:58 | Emergency (ER) | payer MEDICARE ==
[~2023-12-27] VITALS: Ht 152.4 cm; Wt 45.4 kg
[~2023-12-27 19:58] MED LIST changes: +FLUO-290 PO; -FLUO10CA18 PO
[2023-12-27] MEDS: ACETAMINOPHEN TAB 650MG DOSE (2X325MG) PO ONE (20:18)
[2023-12-27] MEDS: NS 500 ML IV ONE (21:41)
[2023-12-27 21:53] LABS: BASO # 0.1 10^3/uL (0.0-0.2); BASO % 0.4 % (0.0-1.0); EOS % 0.1 % (0.0-3.0); HEMATOCRIT 33.5 % (36.0-47.0); HEMOGLOBIN 10.7 g/dl (12.0-15.5); LYMPH # 1.2 10^3/uL (1.5-5.0); MEAN CORPUSCULAR HEMOGLOBIN 31.8 pg (27.0-33.0); MEAN CORPUSCULAR HGB CONC 31.9 g/dl (32.0-36.5); MEAN CORPUSCULAR VOLUME 99.4 fl (80.0-96.0); MONO % 7.2 % (2.0-8.0); NEUTROPHILS # 11.2 10^3/uL (1.5-8.5); NEUTROPHILS % 82.7 % (36.0-66.0); PLATELET COUNT, AUTOMATED 196 10^3/uL (150-450); RED BLOOD COUNT 3.37 10^6/uL (4.00-5.40); WHITE BLOOD COUNT 13.6 10^3/uL (4.0-10.0)
[2023-12-27 23:17] LABS: ALBUMIN 3.1 G/DL (3.2-5.2); BILIRUBIN,DIRECT 0.5 MG/DL (<0.4); BILIRUBIN,TOTAL 1.4 MG/DL (0.3-1.2); CALCIUM LEVEL 9.3 MG/DL (8.3-10.6); CREATININE FOR GFR 1.05 MG/DL (0.55-1.30); GLOMERULAR FILTRATION RATE 53.8 (>39); POTASSIUM SERUM 5.1 MMOL/L (3.5-5.1); TOTAL PROTEIN 6.6 G/DL (5.7-8.2)
[2023-12-27] MEDS: LEVEMIR (INSULIN DETEMIR) 1 UNITS/0.01ML SC ONE (23:52)
[2023-12-28] MEDS ORDERED: MACR100C43 PO (02:44)
[2023-12-28] MEDS: HumuLIN R (REGULAR) INSULIN (NovoLIN R) **100U/ML** PER UNIT IV ONE (02:59)
[2023-12-28] MEDS: NITROFURANTOIN (MACROBID) 100 MG CAP PO ONE (03:13)
[2023-12-28] MEDS: ACETAMINOPHEN TAB 650MG DOSE (2X325MG) PO ONE (03:26)
[2023-12-28 04:52] VITALS: BP 149/67; TEMP 100; O2SAT 96
== END 2023-12-28 05:14 | disposition home or self-care (01) ==
LOC: M ED 19:58
DX: E10.65 Type 1 diabetes mellitus with hyperglycemia (principal); N30.90 Cystitis, unspecified without hematuria; E78.5 Hyperlipidemia, unspecified; I12.9 Hypertensive chronic kidney disease with stage 1 through stage 4 chronic kidney disease, or unspecified chronic kidney disease; D64.9 Anemia, unspecified; E83.42 Hypomagnesemia; Z88.8 Allergy status to other drugs, medicaments and biological substances; Z79.4 Long term (current) use of insulin; Z79.899 Other long term (current) drug therapy
CPT/HCPCS: 71045; 80048; 80076; 81001; 83605; 85025; 87040; 87086; 87486; 87581; 87633; 87798; 96361; 96372; 96374; 99284; J1815

== ENCOUNTER → 2024-01-15 | Outpatient (REF) | payer MEDICARE ==
[~2024-01-15] MED LIST changes: +MACR100C43 PO
== END ==
LOC: M LAB REF 17:02
PROVIDERS: ATTEND Nurse Practitioner Family
DX: N39.0 Urinary tract infection, site not specified (principal)

== ENCOUNTER → 2024-02-16 | Outpatient (REF) | payer MEDICARE ==
[2024-02-16 18:16] LABS: APPEARANCE, URINE HAZY (CLEAR); BACTERIA, URINE AUTO 1+ (NEGATIVE); BILIRUBIN, URINE AUTO NEGATIVE (NEGATIVE); BLOOD, URINE BLOOD NEGATIVE (NEGATIVE); COLOR, URINE YELLOW (YELLOW); GLUCOSE, URINE (UA) AUTO NEGATIVE (NEGATIVE); KETONE, URINE AUTO NEGATIVE (NEGATIVE); LEUKOCYTE ESTERASE, URINE AUTO 1+ (NEGATIVE); MUCUS, URINE SMALL (NEGATIVE); NITRITE, URINE AUTO NEGATIVE (NEGATIVE); PROTEIN, URINE AUTO NEGATIVE (NEGATIVE); RBC, URINE AUTO 0 /HPF (0-3); SQUAMOUS EPITHELIAL CELL UR AU 2 /HPF (0-6); UROBILINOGEN, URINE AUTO 0.2 mg/dL (0.0-2.0); WBC, URINE AUTO 2 /HPF (0-3)
== END ==
LOC: M LAB REF 16:40
PROVIDERS: ATTEND Physician Assistant Medical
DX: N39.0 Urinary tract infection, site not specified (principal)

== ENCOUNTER → 2024-03-03 | Outpatient (CLI) | payer MEDICARE | LOC: M RAD 12:02 | PROVIDERS: ATTEND Nurse Practitioner Adult Health | DX: R10.9 Unspecified abdominal pain (principal); I70.0 Atherosclerosis of aorta ==

== ENCOUNTER → 2024-06-10 | Outpatient (REF) | payer MEDICARE ==
[2024-06-10 17:22] LABS: APPEARANCE, URINE CLOUDY (CLEAR); BACTERIA, URINE AUTO NEGATIVE (NEGATIVE); BILIRUBIN, URINE AUTO NEGATIVE (NEGATIVE); BLOOD, URINE BLOOD NEGATIVE (NEGATIVE); COLOR, URINE YELLOW (YELLOW); GLUCOSE, URINE (UA) AUTO NEGATIVE (NEGATIVE); KETONE, URINE AUTO NEGATIVE (NEGATIVE); LEUKOCYTE ESTERASE, URINE AUTO 2+ (NEGATIVE); MUCUS, URINE SMALL (NEGATIVE); NITRITE, URINE AUTO NEGATIVE (NEGATIVE); PROTEIN, URINE AUTO 1+ mg/dL (NEGATIVE); RBC, URINE AUTO 0 /HPF (0-3); SPECIFIC GRAVITY URINE AUTO 1.014 (1.002-1.035); SQUAMOUS EPITHELIAL CELL UR AU 5 /HPF (0-6); UROBILINOGEN, URINE AUTO 0.2 mg/dL (0.0-2.0); WBC, URINE AUTO 58 /HPF (0-3)
== END ==
LOC: M LAB REF 17:00
PROVIDERS: ATTEND Physician Assistant
DX: N39.0 Urinary tract infection, site not specified (principal); B34.9 Viral infection, unspecified

== ENCOUNTER 2024-06-15 15:37 | Emergency (ER) | payer MEDICARE ==
[~2024-06-15] VITALS: Ht 152.4 cm; Wt 42.3 kg
[2024-06-15 16:44] LABS: BASO % 0.3 % (0.0-1.0); EOS # 0.1 10^3/uL (0.0-0.5); EOS % 0.5 % (0.0-3.0); HEMATOCRIT 28.4 % (36.0-47.0); HEMOGLOBIN 9.2 g/dl (12.0-15.5); LYMPH # 1.2 10^3/uL (1.5-5.0); LYMPH % 10.5 % (24.0-44.0); MEAN CORPUSCULAR HEMOGLOBIN 31.2 pg (27.0-33.0); MEAN CORPUSCULAR HGB CONC 32.4 g/dl (32.0-36.5); MEAN CORPUSCULAR VOLUME 96.3 fl (80.0-96.0); MONO # 0.9 10^3/uL (0.0-0.8); MONO % 8.1 % (2.0-8.0); NEUTROPHILS # 9.1 10^3/uL (1.5-8.5); NEUTROPHILS % 77.8 % (36.0-66.0); PLATELET COUNT, AUTOMATED 387 10^3/uL (150-450); RED BLOOD COUNT 2.95 10^6/uL (4.00-5.40); WHITE BLOOD COUNT 11.6 10^3/uL (4.0-10.0)
[2024-06-15 17:01] LABS: BLOOD UREA NITROGEN 44 MG/DL (9-23); CARBON DIOXIDE LEVEL 25 MMOL/L (20-31); CHLORIDE LEVEL 103 MMOL/L (98-107); CK-MB VALUE MASS < 1.0 NG/ML (<3.6); CPK CREATINE PHOSPHOKINASE 19 U/L (34-145); CREATININE FOR GFR 1.17 MG/DL (0.55-1.30); GLOMERULAR FILTRATION RATE 47.4 (>32); GLUCOSE, FASTING 256 MG/DL (74-106); MB/CK RELATIVE INDEX 5.26 (< OR =4); POTASSIUM SERUM 3.8 MMOL/L (3.5-5.1); SODIUM LEVEL 136 MMOL/L (136-145)
[2024-06-15 18:03] LABS: CK-MB VALUE MASS < 1.0 NG/ML (<3.6)
[2024-06-15 18:04] LABS: CPK CREATINE PHOSPHOKINASE 22 U/L (34-145); MB/CK RELATIVE INDEX 4.54 (< OR =4)
[2024-06-15 18:18] LABS: LIPASE 19 U/L (12-53)
[2024-06-15 18:20] LABS: ALBUMIN 2.2 G/DL (3.2-5.2); ALKALINE PHOSPHATASE 124 U/L (35-104); ALT/SGPT 13 U/L (7.0-40); AST/SGOT 16 U/L (<34); BILIRUBIN,DIRECT 0.2 MG/DL (<0.4); BILIRUBIN,TOTAL 0.4 MG/DL (0.3-1.2); TOTAL PROTEIN 5.7 G/DL (5.7-8.2)
[2024-06-15] MEDS ORDERED: LEVO750T14 PO (18:21)
[2024-06-15] MEDS ORDERED: LEVO1TAB40 PO (18:29)
[2024-06-15] MEDS ORDERED: ZITHTAB PO (18:34)
[2024-06-15] MEDS ORDERED: AMOX875T2 PO (18:34)
[2024-06-15 19:34] VITALS: BP 128/78; TEMP 98.9; O2SAT 98
== END 2024-06-15 19:36 | disposition home or self-care (01) ==
LOC: M ED 15:37
DX: J18.9 Pneumonia, unspecified organism (principal); R07.89 Other chest pain; E11.9 Type 2 diabetes mellitus without complications; I10 Essential (primary) hypertension; K21.9 Gastro-esophageal reflux disease without esophagitis; Z88.1 Allergy status to other antibiotic agents; Z79.4 Long term (current) use of insulin; Z79.899 Other long term (current) drug therapy; Z79.83 Long term (current) use of bisphosphonates

== ENCOUNTER → 2024-06-16 | Outpatient (REF) | payer MEDICARE ==
[~2024-06-16] MED LIST changes: +AMOX875T2 PO; +LEVO1TAB40 PO; +LEVO750T14 PO; +ZITHTAB PO
== END ==
LOC: M LAB REF 16:32
PROVIDERS: ATTEND Nurse Practitioner Adult Health
DX: N39.0 Urinary tract infection, site not specified (principal)

== ENCOUNTER 2024-08-22 12:41 | Emergency (ER) | payer MEDICARE ==
[~2024-08-22] VITALS: Ht 152.4 cm; Wt 41.2 kg
[~2024-08-22 12:41] MED LIST changes: -LEVO750T14 PO; +LEVO75TAB PO
[2024-08-22] MEDS ORDERED: CINA30TA5 (13:12)
[2024-08-22] MEDS ORDERED: FURO20TA2 (13:12)
[2024-08-22] MEDS ORDERED: TRAM50TA2 PO (15:45)
[2024-08-22] MEDS: traMADol 50 MG TAB PO ONE (15:56)
[2024-08-22 16:13] VITALS: BP 158/70; TEMP 97.3; O2SAT 100
== END 2024-08-22 16:18 | disposition home or self-care (01) ==
LOC: M ED 12:41
DX: S42.212A Unspecified displaced fracture of surgical neck of left humerus, initial encounter for closed fracture (principal); S20.211A Contusion of right front wall of thorax, initial encounter; W01.198A Fall on same level from slipping, tripping and stumbling with subsequent striking against other object, initial encounter; I10 Essential (primary) hypertension; E11.9 Type 2 diabetes mellitus without complications; Z79.4 Long term (current) use of insulin; Z88.1 Allergy status to other antibiotic agents; Y92.002 Bathroom of unspecified non-institutional (private) residence as the place of occurrence of the external cause; Y93.89 Activity, other specified; Y99.9 Unspecified external cause status; Z79.899 Other long term (current) drug therapy

== ENCOUNTER → 2024-09-08 | Outpatient (CLI) | payer MEDICARE ==
[~2024-09-08] MED LIST changes: +CINA30TA5; +FURO20TA2; +TRAM50TA2 PO
== END ==
LOC: M SOG 07:54
PROVIDERS: ATTEND Physician Assistant
DX: S42.352A Displaced comminuted fracture of shaft of humerus, left arm, initial encounter for closed fracture (principal); M75.32 Calcific tendinitis of left shoulder

== ENCOUNTER → 2024-10-12 | Outpatient (CLI) | payer MEDICARE | LOC: M SOG 07:49 | PROVIDERS: ATTEND Physician Assistant | DX: S42.202D Unspecified fracture of upper end of left humerus, subsequent encounter for fracture with routine healing (principal) ==

== ENCOUNTER → 2024-11-29 | Outpatient (REF) | payer MEDICARE | LOC: M LAB REF 17:35 | PROVIDERS: ATTEND Physician Assistant Medical | DX: R10.9 Unspecified abdominal pain (principal) ==

== ENCOUNTER → 2024-12-01 | Outpatient (CLI) | payer MEDICARE ==
[~2024-12-01] MED LIST changes: +ISOVUE-370 76% 100ML VIAL ONE
== END ==
LOC: M PLAIMG 08:02
PROVIDERS: ATTEND Physician Assistant Medical
DX: R10.9 Unspecified abdominal pain (principal); R11.0 Nausea; Z90.49 Acquired absence of other specified parts of digestive tract
CPT/HCPCS: 74177; Q9967

== ENCOUNTER → 2024-12-14 | Outpatient (CLI) | payer MEDICARE ==
[~2024-12-14] MED LIST changes: -ISOVUE-370 76% 100ML VIAL ONE
== END ==
LOC: M SOG 07:51
PROVIDERS: ATTEND Physician Assistant
DX: S42.202D Unspecified fracture of upper end of left humerus, subsequent encounter for fracture with routine healing (principal)

== ENCOUNTER → 2024-12-21 | Outpatient (REF) | payer MEDICARE | LOC: M LAB REF 14:18 | PROVIDERS: ATTEND Nurse Practitioner Adult Health | DX: R10.9 Unspecified abdominal pain (principal) ==

== ENCOUNTER → 2025-03-24 | Outpatient (REF) | payer MEDICARE ==
[~2025-03-24] MED LIST changes: -PRAV20TA2 PO; +PRAV20TA78 PO; -PROZ20CA11 PO; +PROZ20CA12 PO; +SLOW1TAB3 PO; -SLOWTAB2 PO
[2025-03-24 19:07] LABS: IRON (FE) 61.0 UG/DL (50-170); PERCENT SATURATION 17.3 % (13.2-45.0)
== END ==
LOC: M LAB REF 17:19
PROVIDERS: ATTEND Nurse Practitioner Adult Health
DX: D64.9 Anemia, unspecified (principal)